=== PATIENT | male | born 1925 | race Caucasian/White ===

== ENCOUNTER 2017-02-10 22:39 | Inpatient (IN) | payer OTHER, MEDICARE ==
[~2017-02-10] VITALS: Ht 175.3 cm; Wt 78.9 kg
[~2017-02-10 22:39] MED LIST: ASPIRIN EC81 M1 PO; CALCIUM500 M1 PO; CELECOXIB200 M1 PO; CIPRO250 M1 PO; CIPRO500 M1 PO; CO Q-10100 MG PO; CRESTOR10 M1 PO; DULOXETINE HCL30 MG PO; KEFLEX500 M1 PO; LUTEIN40 MG PO; OMEGA-31000 M1 PO; OXYCODONE HCL5 M1 PO; POLYETHYLENE G255 GM PO; PROBIOTIC1 EACH PO; PROTONIX40 M3 PO; PYRIDIUM200 M1 PO; TAMSULOSIN HCL0.4 M1 PO; VITAMIN B-121000 MC3 PO; VITAMIN D31000 UNI2 PO
--- NOTE | 2017-02-10 22:40 | NUR ---
PRASANTH FROM HOME (LIVES WITH ) FOR CHRONIC BACK PAIN. PT TOOK MEDS AT HOME WITH NO IMPROVEMENT. UPON EMS ARRIVAL, EMS NOTED THAT PT ENDED UP TAKING 5-6 PILLS OF FLOMAX INSTEAD OF OXYCODONE. OFFERS NO OTHER COMPLAINTS ON ARRIVAL. TEMP 100.7
--- NOTE | 2017-02-10 22:51 | ED NECK/BACK PAIN COMPLAINT ---
History of Present Illness General Chief Complaint: Low Back Pain/Injury Stated Complaint: BIBA FOR BACK PAIN Source: patient Exam Limitations: no limitations Vital Signs & Intake/Output Vital Signs & Intake/Output Vital Signs Date Time Temp Pulse Resp B/P B/P Pulse O2 O2 Flow FiO2 Mean Ox Delivery Rate 02/11 0045 78 16 130/72 95 Nasal 2.0L Cannula 02/10 2258 100.8 20 92 Room Air 02/10 2245 100.7 77 16 142/78 97 Nasal 6.0L Cannula ED Intake and Output 02/11 0000 02/10 1200 Intake Total Output Total Balance Patient 180 lb Weight Weight Estimated Measurement Method Allergies Coded Allergies: NO KNOWN ALLERGIES (08/07/11) Reconcile Medications Aspirin (Ecotrin*) 81 MG TABLET.DR 1 TAB PO DAILY HEART/BLOOD (Reported) Calcium Carbonate (Calcium) 500 MG TABLET 1,500 MG PO DAILY SUPPLEMENT ( Reported) Celecoxib 200 MG CAPSULE 1 CAP PO DAILY ARTHRITIS (Reported) Cholecalciferol (Vitamin D3) 1,000 UNIT TABLET 1 TAB PO DAILY SUPPLEMENT ( Reported) Ciprofloxacin HCl (Cipro) 500 MG TABLET 1 TAB PO BID UTI X 10 DAYS Cyanocobalamin (Vitamin B-12) 1,000 MCG TABLET 1 TAB PO DAILY SUPPLEMENT ( Reported) Duloxetine HCl 30 MG CAPSULE.DR 1 CAP PO DAILY MENTAL HEALTH (Reported) Lactobacillus Acidophilus (Probiotic) 1 EACH CAPSULE 1 CAP PO DAILY SUPPLEMENT (Reported) Lutein (Unknown Strength) CAPSULE (Unknown Dose) PO DAILY SUPPLEMENT ( Reported) [place]-3 Fatty Acids ([place]-3) 1,000 MG CAPSULE 2 CAP PO DAILY SUPPLEMENT ( Reported) Oxycodone HCl 5 MG TABLET 1 TAB PO 4XDAILY PRN PAIN (Reported) Pantoprazole Sodium (Protonix) 40 MG TABLET.DR 1 TAB PO DAILY GI (Reported) Polyethylene Glycol 3350 255 GM POWDER 17 GM PO Q3D GI (Reported) Rosuvastatin Calcium (Crestor) 10 MG TABLET 1 TAB PO 2XW CHOLESTEROL ( Reported) Tamsulosin HCl 0.4 MG CAP.ER.24H 1 CAP PO DAILY PROSTATE (Reported) Ubidecarenone (Co Q-10) 100 MG CAPSULE 1 CAP PO DAILY SUPPLEMENT (Reported) Triage Note: BIBA FROM HOME (LIVES WITH ) FOR CHRONIC BACK PAIN. PT TOOK MEDS AT HOME WITH NO IMPROVEMENT. UPON EMS ARRIVAL, EMS NOTED THAT PT ENDED UP TAKING 5-6 PILLS OF FLOMAX INSTEAD OF OXYCODONE. OFFERS NO OTHER COMPLAINTS ON ARRIVAL. TEMP 100.7 Triage Nurses Notes Reviewed? yes HPI: Mr. Gr is a 89 yo m w/ PMH of prostate ca, chronic back pain, and UTIs presenting to ED for back pain. Patient states that over the past 48 hours he's had significant only worsened low back pain. Pain is over the lumbar area centrally located and slightly towards the right hip. Patient also endorses subjective fever and chills. He was febrile here in the emergency department to 100.7. Patient was also noted to be hypoxic to 92%. Pt denies cough, chest pain, abd pain, N/V/D. + dysuria and increased urinary frequency. Patient thought he was taking his oxycodone for the pain, but found out he was actually taking his Flomax accidentally. He endorses multiple UTIs in the past. (RICKY TOVAR MD) Past History Travel History Traveled to [place] past 21 day No Medical History Any Pertinent Medical History? see below for history Neurological: NONE EENT: NONE Cardiovascular: NONE Respiratory: NONE Gastrointestinal: NONE Renal: PROSTATE SURGERY Musculoskeletal: chronic back pain Psychiatric: NONE Endocrine: NONE Blood Disorders: NONE Cancer(s): prostate cancer Surgical History Surgical History: non-contributory Psychosocial History Who do you live with Spouse What is your primary language Khmer Family History Family History, If Any: Relation not specified for: No family history of disorders Hx Contributory? No (RICKY TOVAR MD) Review of Systems Review of Systems Constitutional: Reports: chills, fever, weakness. Eyes: Reports: no symptoms. Ears, Nose, Throat, Mouth: Reports: no symptoms. Respiratory: Reports: no symptoms. Cardiovascular: Reports: no symptoms. Gastrointestinal/Abdominal: Reports: no symptoms. Musculoskeletal: Reports: no symptoms. Skin: Reports: no symptoms. Neurological/Psychological: Reports: no symptoms. All Other Systems: Reviewed and Negative (RICKY TOVAR MD) Physical Exam Physical Exam General Appearance: well developed/nourished, no apparent distress, alert, awake , comfortable Head: atraumatic, normal appearance Eyes: Bilateral: normal appearance, PERRL, EOMI, normal inspection. Ears, Nose, Throat, Mouth: hearing grossly normal Neck: normal inspection, supple, full range of motion Respiratory: normal breath sounds, chest non-tender, no respiratory distress Cardiovascular: regular rate/rhythm Gastrointestinal: normal bowel sounds, soft, non-tender Back: normal inspection Extremities: non-tender, normal range of motion Neurologic/Psych: no motor/sensory deficits, awake, alert, oriented x 3, normal gait, normal mood/affect Skin: intact, normal color, warm/dry (LA ESTEVEZ,RICKY) Progress Differential Diagnosis: cauda equina syn, herniated disc, pyelo/UTI, T/L spine injury, pneumonia, spinal metastasis Plan of Care: Orders Procedure Date/time Status LACTIC ACID 02/11 203 Active CULTURE,URINE 02/10 2303 Active BLOOD CULTURE 02/10 2303 Active URINALYSIS 02/10 2303 Complete LACTIC ACID 02/10 2303 Complete COMPREHENSIVE METABOLIC PANEL 02/10 2303 Complete CBC WITHOUT DIFFERENTIAL 02/10 2303 Complete Laboratory Tests 02/11/17 012: Urinalysis LIGHT H, Urine Color YEL, Urine Clarity HAZY H, Urine pH 6.5, Ur Specific [place] 1.015, Urine Protein 100 H, Urine Ketones NEG, Urine Nitrite NEG, Urine Bilirubin NEG, Urine Urobilinogen 0.2, Ur Leukocyte Esterase LARGE H , Ur Microscopic SEDIMENT EXAMINED, Urine RBC 3-5, Urine WBC 50-75 H, Ur Epithelial Cells FEW, Urine Bacteria MANY H, Urine Hemoglobin LARGE H, Urine Glucose NEG 02/10/179: Anion Gap 10, Estimated GFR 44 L, BUN/Creatinine Ratio 15.3, Glucose 116 H, Lactic Acid 0.9, Calcium 8.7, Total Bilirubin 1.0, AST 18, ALT 33, Alkaline Phosphatase 69, Total Protein 6.1 L, Albumin 3.4 L, Globulin 2.7, Albumin/ Globulin Ratio 1.3, CBC w Diff NO MAN DIFF REQ, RBC 3.91 L, MCV 91.7, MCH 30.5, RDW 14.0, MPV 10.6 H, Gran % 82.4 H, Lymphocytes % 3.8 L, Monocytes % 12.3 H , Eosinophils % 0, Basophils % 1.5, Absolute Granulocytes 10.0 H, Absolute Lymphocytes 0.5 L, Absolute Monocytes 1.5 H, Absolute Eosinophils 0, Absolute Basophils 0.2, PUBS MCHC 33.2 Microbiology 02/11 0124 URINE ROUT: Urine Culture - RECD 02/11 0000 BLOOD: Blood Culture - RECD 02/10 2309 BLOOD: Blood Culture - RECD 89-year-old male with fever of 100.7. Patient has complaints of back pain with history of prostate cancer. Patient also has history of multiple UTIs. No CVA tenderness bilaterally. Possible UTI today, but unlikely pyelonephritis without CVA tenderness. Patient also does not have any significant respiratory diseases to account for his new hypoxia. He is not on oxygen at baseline. CXR ordered to assess for pneumonia as underlying cause of hypoxia and fever. Given the patient's history of prostate cancer, will obtain a lumbar x-ray to assess for possible pathologic fracture. Patient is moving bilateral lower extremities and denies any urinary hesitancy so unlikely cord compression. Patient ordered for Zofran, morphine and 1 L of fluids for hydration. (RICKY TOVAR MD) Hand-Off Endorsed To: JD VALLECILLO MD Endorsed Time: 51 Pending: other (urine, lactic acid) (RICKY TOVAR MD) Departure Departure Time of Disposition: 52 Disposition: STILL A PATIENT Condition: Stable Referrals: BRUCE HELTON MD (PCP/Family) Departure Forms: Customer Survey General Discharge Information (RICKY TOVAR MD) Departure Clinical Impression Primary Impression: Fever Qualifiers: Fever type: unspecified Qualified Code: R50.9 - Fever, unspecified Secondary Impressions: ARF (acute renal failure) Qualifiers: Acute renal failure type: unspecified Qualified Code: N17.9 - Acute kidney failure, unspecified Back pain Qualifiers: Back pain location: low back pain Chronicity: unspecified Back pain laterality: midline Sciatica presence: without sciatica Qualified Code: M54.5 - Low back pain Urinary tract infection Qualifiers: Urinary tract infection type: acute cystitis Hematuria presence: without hematuria Qualified Code: N30.00 - Acute cystitis without hematuria Admission Note Spoke With: SASKIA MENDIETA MD Documentation of Exam: Documentation of any treatments & extenuating circumstances including Concerns Regarding Discharge (functional status, medication knowledge or non-compliance, living conditions, etc.) that warrant an admission rather than observation: [IV ABX, IV FLUIDS, HX OF PSEUDOMONAS IN URINE, ID CONSULT, RENAL CONSULT] PA/WELDING MACHINE FEEDER Co-Sign Statement Statement: ED Attending supervision documentation- [X] I saw and evaluated the patient. I have also reviewed all the pertinent lab results and diagnostic results. I agree with the findings and the plan of care as documented in the PA's/WELDING MACHINE FEEDER's documentation. [X] I have reviewed the ED Record and agree with the PA's/WELDING MACHINE FEEDER's documentation. [] Additions or exceptions (if any) to the PAs/WELDING MACHINE FEEDER's note and plan are summarized below: [] (RUTH ANN ESTEVEZ,JD Alvarado) [X] I saw and evaluated the patient. I have also reviewed all the pertinent lab results and diagnostic results. I agree with the findings and the plan of care as documented in the PA's/WELDING MACHINE FEEDER's documentation. [X] I have reviewed the ED Record and agree with the PA's/WELDING MACHINE FEEDER's documentation. [] Additions or exceptions (if any) to the PAs/WELDING MACHINE FEEDER's note and plan are summarized below: [] (RUTH ANN ESTEVEZ,JD Alvarado)
--- NOTE | 2017-02-10 23:00 | NUR ---
DR LUIS AT BEDSIDE FOR EVAL
[2017-02-10 23:22] LABS: ABSOLUTE BASOPHIL COUNT 0.2 /CUMM (0.0-0.2); ABSOLUTE EOSINOPHIL COUNT 0 /CUMM (0.0-0.7); ABSOLUTE LYMPH COUNT 0.5 /CUMM (1.2-3.4); ABSOLUTE MONOCYTE COUNT 1.5 /CUMM (0.10-0.60); BASOPHIL % 1.5 % (0.0-2.0); EOSINOPHIL % 0 % (0-5); GRANULOCYTE % 82.4 % (42.2-75.2); HEMATOCRIT 35.8 % (42-52); MEAN CORPUSCULAR HGB 30.5 PG (27.0-31.0); MEAN CORPUSCULAR HGB CONC 33.2 G/DL (33.0-37.0); MEAN CORPUSCULAR VOLUME 91.7 FL (80.0-94.0); MEAN PLATELET VOLUME 10.6 FL (7.4-10.4); RED BLOOD CELL CT 3.91 /CUMM (4.70-6.10); WHITE BLOOD CELL COUNT 12.1 /CUMM (4.8-10.8)
[2017-02-10 23:39] LABS: PLATELET COUNT 98 /CUMM (130-400)
--- NOTE | 2017-02-10 23:53 | RADIOLOGY REPORT ---
EXAMINATION: XR CHEST CLINICAL INFORMATION: Hypoxia and fever COMPARISON: 04/23/2013 TECHNIQUE: 2 views of the chest were obtained. FINDINGS: The lungs are well expanded. There is no focal consolidation, edema, or effusion. No pneumothorax. The cardiomediastinal silhouette is unchanged, with a calcified aorta. No acute osseous abnormality. IMPRESSION: No acute pulmonary findings.
--- NOTE | 2017-02-10 23:58 | RADIOLOGY REPORT ---
EXAMINATION: XR LUMBOSACRAL SPINE CLINICAL INFORMATION: Prostate cancer, worse back pain. COMPARISON: Pelvic CT 02/14/2016. Bone scan from 02/14/2016. Abdomen/pelvis CT 01/25/2015. TECHNIQUE: AP and lateral views of the lumbosacral spine were obtained. FINDINGS: Posterior fusion hardware is in place from L4 through S1. Left L5 particular screw. No right-sided screw. This is unchanged. There is a lucent appearance of the L5 vertebral body which may be similar to the prior auto fleet maintenance manager image from the 01/25/2015 CT. This vertebral body is not well evaluated. Chronic vertebral body height loss of L3. The remaining vertebral body heights are maintained. Multilevel degenerative changes throughout the spine. Prominent disc space narrowing throughout with vacuum disc phenomenon. Large endplate osteophytes. The sacroiliac joints are intact. Partial visualization of right hip arthroplasty hardware. IMPRESSION: Moderate degenerative changes throughout the lumbar spine. Lucent appearance of the L5 vertebral body is likely similar to the previous Air Filler imaging from prior CTs. This limits evaluation of L5. Otherwise no evidence for fracture. No new sclerotic lesion.
--- NOTE | 2017-02-11 00:06 | NUR ---
2ND SET OF BLOOD CULTURES DRAWN AND SENT TO LAB.
--- NOTE | 2017-02-11 00:46 | NUR ---
HEPLOCK INSERTED. CO LOW BACK PAIN 02/15 MORPHINE AND ZOFRAN GIVEN IV.
--- NOTE | 2017-02-11 01:27 | NUR ---
URINE SAMPLE SENT TO LAB
--- NOTE | 2017-02-11 03:30 | NUR ---
RE EVAL BY DR VALLECILLO. PT TO BE ADMITTED. NS UP CLEMENTINA PILLAI.
--- NOTE | 2017-02-11 03:47 | History & Physical ---
MARTY ESTEVEZ,YUMIKO 02/11/17 0347: General Information and HPI Allergies/Medications Allergies: Coded Allergies: NO KNOWN ALLERGIES (08/07/11) Home Med list Aspirin (Ecotrin*) 81 MG TABLET.DR 1 TAB PO DAILY HEART/BLOOD (Reported) Calcium Carbonate (Calcium) 500 MG TABLET 1,500 MG PO DAILY SUPPLEMENT ( Reported) Celecoxib 200 MG CAPSULE 1 CAP PO DAILY ARTHRITIS (Reported) Cholecalciferol (Vitamin D3) 1,000 UNIT TABLET 1 TAB PO DAILY SUPPLEMENT ( Reported) Ciprofloxacin HCl (Cipro) 500 MG TABLET 1 TAB PO BID UTI X 10 DAYS Cyanocobalamin (Vitamin B-12) 1,000 MCG TABLET 1 TAB PO DAILY SUPPLEMENT ( Reported) Duloxetine HCl 30 MG CAPSULE.DR 1 CAP PO DAILY MENTAL HEALTH (Reported) Lactobacillus Acidophilus (Probiotic) 1 EACH CAPSULE 1 CAP PO DAILY SUPPLEMENT (Reported) Lutein (Unknown Strength) CAPSULE (Unknown Dose) PO DAILY SUPPLEMENT ( Reported) [place]-3 Fatty Acids ([place]-3) 1,000 MG CAPSULE 2 CAP PO DAILY SUPPLEMENT ( Reported) Oxycodone HCl 5 MG TABLET 1 TAB PO 4XDAILY PRN PAIN (Reported) Pantoprazole Sodium (Protonix) 40 MG TABLET.DR 1 TAB PO DAILY GI (Reported) Polyethylene Glycol 3350 255 GM POWDER 17 GM PO Q3D GI (Reported) Rosuvastatin Calcium (Crestor) 10 MG TABLET 1 TAB PO 2XW CHOLESTEROL ( Reported) Tamsulosin HCl 0.4 MG CAP.ER.24H 1 CAP PO DAILY PROSTATE (Reported) Ubidecarenone (Co Q-10) 100 MG CAPSULE 1 CAP PO DAILY SUPPLEMENT (Reported) Past History Travel History Traveled to [place] past 21 day No Medical History Neurological: NONE EENT: NONE Cardiovascular: hyperlipidemia Respiratory: NONE Gastrointestinal: NONE Hepatic: NONE Renal: PROSTATE SURGERY Musculoskeletal: chronic back pain Psychiatric: NONE Endocrine: NONE Blood Disorders: NONE Cancer(s): prostate cancer Surgical History Surgical History: non-contributory Past Family/Social History Family History Relations & Conditions if any Relation not specified for: No family history of disorders Core Measures/Miscellaneous Severe Sepsis Severe Sepsis Present: No Septic Shock Septic Shock Present: No GEORGIE OVIEDO 02/11/17 0359: Resident Review Statement Resident Statement: examined this patient, discussed with architecture intern, agreed with architecture intern, discussed with family, reviewed EMR data (avail), discussed with nursing , discussed with case mgmt, reviewed images, amended to note
--- NOTE | 2017-02-11 04:25 | NUR ---
HOUSE STAFF HERE TO [facility]
--- NOTE | 2017-02-11 04:49 | History & Physical ---
MELLO MARIN MD,[facility] 02/11/17 0448: General Information and HPI MD Statement: I have seen and personally examined LISA MENA and documented this H&P. The patient is a 89 year old M who presented with a patient stated chief complaint of [burning and pain while passing urine]. Source of Information: patient, old records Exam Limitations: patient's age, clinical condition, poor historian History of Present Illness: 89 years old male with past medical history significant for prostate cancer status post radiation and ? hormonal therapy, dyslipidemia, arthritis in 1999, bilateral knee replacement, history of right hip replacement surgery 2000, L5-S1 fusion and laminectomy, rotator cuff injury of right shoulder, neuropathy, macular degeneration, history of vertigo in the past, left eye cataract surgery, recent admission at the [facility] for urinary tract infection came to emergency department for inability to urinate, pain with passing urine, and burning while passing urine. Patient reported that his noticed some subjective fevers and he had chills and therefore decided to come to emergency department. Patient also complained of back pain and right hip pain that has been going on for the last few days. According to the patient he did not report any falls or trauma. Patient talked that he was taking oxycodone to manage his pain but actually he was taking Flomax instead of oxycodone. This information was conveyed to him by the EMT staff who came to bring him to [facility]. Review of systems positive for headaches, chronic back pain and bilateral lower extremity edema. Review of system was negative for any acute severe changes, chest pain, shortness of breath, nausea, vomiting, recent diarrhea, history of febrile contacts or rash. Allergies/Medications Allergies: Coded Allergies: NO KNOWN ALLERGIES (08/07/11) Home Med list Aspirin (Ecotrin*) 81 MG TABLET.DR 1 TAB PO DAILY HEART/BLOOD (Reported) Calcium Carbonate (Calcium) 500 MG TABLET 1,500 MG PO DAILY SUPPLEMENT ( Reported) Celecoxib 200 MG CAPSULE 1 CAP PO DAILY ARTHRITIS (Reported) Cholecalciferol (Vitamin D3) 1,000 UNIT TABLET 1 TAB PO DAILY SUPPLEMENT ( Reported) Ciprofloxacin HCl (Cipro) 500 MG TABLET 1 TAB PO BID UTI X 10 DAYS Cyanocobalamin (Vitamin B-12) 1,000 MCG TABLET 1 TAB PO DAILY SUPPLEMENT ( Reported) Duloxetine HCl 30 MG CAPSULE.DR 1 CAP PO DAILY MENTAL HEALTH (Reported) Lactobacillus Acidophilus (Probiotic) 1 EACH CAPSULE 1 CAP PO DAILY SUPPLEMENT (Reported) Lutein (Unknown Strength) CAPSULE (Unknown Dose) PO DAILY SUPPLEMENT ( Reported) [place]-3 Fatty Acids ([place]-3) 1,000 MG CAPSULE 2 CAP PO DAILY SUPPLEMENT ( Reported) Oxycodone HCl 5 MG TABLET 1 TAB PO 4XDAILY PRN PAIN (Reported) Pantoprazole Sodium (Protonix) 40 MG TABLET.DR 1 TAB PO DAILY GI (Reported) Polyethylene Glycol 3350 255 GM POWDER 17 GM PO Q3D GI (Reported) Rosuvastatin Calcium (Crestor) 10 MG TABLET 1 TAB PO 2XW CHOLESTEROL ( Reported) Tamsulosin HCl 0.4 MG CAP.ER.24H 1 CAP PO DAILY PROSTATE (Reported) Ubidecarenone (Co Q-10) 100 MG CAPSULE 1 CAP PO DAILY SUPPLEMENT (Reported) Compliance With Home Meds: UNKNOWN Past History Travel History Traveled to [place] past 21 day No Medical History Neurological: NONE EENT: NONE Cardiovascular: hyperlipidemia Respiratory: NONE Gastrointestinal: NONE Hepatic: NONE Renal: PROSTATE SURGERY Musculoskeletal: chronic back pain Psychiatric: NONE Endocrine: NONE Blood Disorders: NONE Cancer(s): prostate cancer Surgical History Surgical History: non-contributory ECHO Results (as available) Date of last Echo 08/08/11 EF% 60 Past Family/Social History Family History Relations & Conditions if any Relation not specified for: No family history of disorders Psychosocial History Where do you live? Home Who Do You Live With? spouse Primary Language: [place] Functional Ability ADLs Independent: dressing, eating, toileting, bathing. Ambulation: walker Review of Systems Review of Systems Constitutional: Reports: chills, fever. EENTM: Denies: visual changes. Cardiovascular: Denies: chest pain, palpitations. Respiratory: Denies: cough, short of breath. GI: Denies: abdominal pain, nausea, vomiting. Genitourinary: Reports: dysuria, pain. Musculoskeletal: Reports: back pain. All Other Systems: Reviewed and Negative Exam & Diagnostic Data Last 24 Hrs of Vital Signs/I&O Vital Signs Date Time Temp Pulse Resp B/P B/P Pulse O2 O2 Flow FiO2 Mean Ox Delivery Rate 02/11 0045 78 16 130/72 95 Nasal 2.0L Cannula 02/10 2258 100.8 20 92 Room Air 02/10 2245 100.7 77 16 142/78 97 Nasal 6.0L Cannula Intake & Output 02/11 0800 02/11 0000 02/10 1600 Intake Total Output Total Balance Patient 180 lb Weight Weight Estimated Measurement Method Physical Exam General Appearance Alert, Oriented X3, Mild Distress Skin No Rashes, No Breakdown HEENT Atraumatic, dry mucous membranes Neck No JVD Cardiovascular Regular Rate, Normal S1, Normal S2 Lungs Clear to Auscultation, Normal Air Movement Abdomen Normal Bowel Sounds, mild lower central abdominal tenderness on palpation Neurological Normal Gait, Normal Speech, Normal Tone, Sensation Intact Extremities No Clubbing, Normal Pulses, 1-2+ bilateral lower extremity edema Vascular Normal Pulses Last 24 Hrs of Labs/Bashir: Laboratory Tests 02/11/17123: Urinalysis LIGHT H, Urine Color YEL, Urine Clarity HAZY H, Urine pH 6.5, Ur Specific [place] 1.015, Urine Protein 100 H, Urine Ketones NEG, Urine Nitrite NEG, Urine Bilirubin NEG, Urine Urobilinogen 0.2, Ur Leukocyte Esterase LARGE H , Ur Microscopic SEDIMENT EXAMINED, Urine RBC 3-5, Urine WBC 50-75 H, Ur Epithelial Cells FEW, Urine Bacteria MANY H, Urine Hemoglobin LARGE H, Urine Glucose NEG 02/10/172308: Anion Gap 10, Estimated GFR 44 L, BUN/Creatinine Ratio 15.3, Glucose 116 H, Lactic Acid 0.9, Calcium 8.7, Total Bilirubin 1.0, AST 18, ALT 33, Alkaline Phosphatase 69, Total Protein 6.1 L, Albumin 3.4 L, Globulin 2.7, Albumin/ Globulin Ratio 1.3, CBC w Diff NO MAN DIFF REQ, RBC 3.91 L, MCV 91.7, MCH 30.5, RDW 14.0, MPV 10.6 H, Gran % 82.4 H, Lymphocytes % 3.8 L, Monocytes % 12.3 H , Eosinophils % 0, Basophils % 1.5, Absolute Granulocytes 10.0 H, Absolute Lymphocytes 0.5 L, Absolute Monocytes 1.5 H, Absolute Eosinophils 0, Absolute Basophils 0.2, PUBS MCHC 33.2 Microbiology 02/11 0124 URINE ROUT: Urine Culture - RECD 02/11 0000 BLOOD: Blood Culture - RECD 02/10 2309 BLOOD: Blood Culture - RECD Diagnostic Data CXR Results No acute pulmonary findings. Other Results Moderate degenerative changes throughout the lumbar spine. Lucent appearance of the L5 vertebral body is likely similar to the previous Staff Mechanical Engineer imaging from prior CTs. This limits evaluation of L5. Otherwise no evidence for fracture. No new sclerotic lesion. Assessment/Plan Assessment: 89 years old male with past medical history significant for prostate cancer status post radiation and ? hormonal therapy, dyslipidemia, arthritis in 1999, bilateral knee replacement, history of right hip replacement surgery 2000, L5-S1 fusion and laminectomy, rotator cuff injury of right shoulder, neuropathy, macular degeneration, history of vertigo in the past, left eye cataract surgery, recent admission at the [facility] for urinary tract infection came to emergency department for inability to urinate, pain with passing urine, and burning while passing urine, subjective fever, chills and back pain. Patient was admitted on general medicine floor for the management of following problems Sepsis secondary to urinary tract infection Patient meets the criteria for sepsis given leukocytosis of 12.1 and high-grade fever of 101.4, and does not have any tachypnea or tachycardia. Most likely source of sepsis in this patient is secondary to urinary tract infection with history of multiple UTIs in the past and history of benign prostatic hyperplasia in the setting of prostate CA further complicates this. We wanted to rule out urinary tract obstruction leading to acute renal failure and wanted to place Diehl catheter per patient denied this. We will obtain an urgent renal ultrasound to rule out hydronephrosis. Also obtain urology consult in a.m. - Admit Patient to General Medicine Floor - Vitals Qshift - Patient received 1 dose of IV ceftazidime in ED - Continue with IV ceftazidime - Send Urine Culture - Check blood cultures to rule out bacteremia - Check Survillence Cultures - Repeat CBC in AM - Tyelenol PRN if patient develops fever - Incase of worsening Fever consider CT Abd/Pelvis - Fall Precautions - IV fluids normal saline at the rate of 125 mL per hour - Avoid nephrotoxins - Repeat BEP in a.m. - Urology consult Acute kidney injury in the setting of BPH Most likely cause of acute kidney injury is obstruction versus decreased by mouth intake. Patient's creatinine was more than 0.3 mg/dL from baseline (1.0), and qualifies for acute kidney injury. Patient denied Diehl's catheter. Check Input output Avoid nephrotoxins IV fluids normal saline at the rate of 125 mL per hour Repeat BEP in a.m. Imaging to rule out obstruction Hypoxemic Respiratory Failure Patient does not require oxygen at baseline Well's Criteria 2.5 (H/O cancer and immbolization) Low threshold for PE but possibility of PE should be kept in mind if persistent hypoxemia History of prostate CA Patient has past medical history significant for prostate CA. According to the patient he has been treated with radiotherapy and questionable hormonal therapy.Patient also has h/o chronic back pain. kindly confirm by obtaining medical records. ? Thrombocytopenia Recheck platelets Check peripheral smear Patient is Full Code Patient is on pain management pathway Patient is on ALPS for DVT prophylaxis Patient is on regular diet As Ranked By This Provider Problem List: 1. BPH 2. Urinary tract infection Qualifiers Urinary tract infection type: acute cystitis Hematuria presence: without hematuria Qualified Code: N30.00 - Acute cystitis without hematuria 3. Fever Qualifiers Fever type: unspecified Qualified Code: R50.9 - Fever, unspecified 4. ARF (acute renal failure) Qualifiers Acute renal failure type: unspecified Qualified Code: N17.9 - Acute kidney failure, unspecified Core Measures/Miscellaneous Acute Coronary Syndrome ACS Diagnosis: No Cerebrovascular Accident CVA/TIA Diagnosis: No Congestive Heart Failure CHF Diagnosis: No Venous Thromboembolism VTE Risk Factors: Acute medical illness, Age > 40, Cancer/chemo/oth therapy No Mech VTE prophylaxis d/t: No contraindications No VTE Pharm Prophylaxis d/t: No contraindications VTE Diagnosis: No VTE Type: NONE VTE Confirmed by (Test): NONE Severe Sepsis Severe Sepsis Present: No Septic Shock Septic Shock Present: No Miscellaneous Documentation Attending Case Discussed With: [facility]ED[facility] Primary Care Physician: BRUCE HELTON MD Patient sees these Specialists Oncologist Urologist Level of Patient Care: General Medicine Consults Needed: Consulting Specialty: Urology [facility]11[facility]17 0617: Attending MD Review Statement Attending Statement Attending MD Statement: examined this patient, discuss w/resident/PA/GLASS LAMINATING OPERATOR, agreed w/resident/PA/GLASS LAMINATING OPERATOR Attending Assessment/Plan: 89 yo M with h/o prostate adenocarcinoma s/p radiation therapy (2016), was on Casodex but discontinued due to side effects, recurrent UTIs with multiple ER visits (2016) and recent [place] admission for the same, is here today for evaluation of back pain. In an attempt to prevent his neighbour from stealing his pain meds, patient had placed his Oxycodone in a different bottle, and reportedly has been taking multiple doses of flomax instead of oxycodone (as told to him by EMS). No recent trauma. He has chronic back pain and is status post laminectomy. He reports difficulty urinating, dysuria and increased frequency. Poor PO intake. History is very limited as patient is unable to provide much details. Vitals: Tmax 101.4, BP 130/72, sats 95% on 2L. Exam: AAO, dry mucous membranes, Chest b/l clear, Heart S1S2 regular, Abd soft, suprapubic tenderness, no CVA tenderness. LE: trace pedal edema. Labs: WBC 12.1, Plt 98, BUN 23, creat 1.5 ( baseline 0.8), glucose 116, lactic acid 0.9. UA proteinuria, WBC 50-75, many bacteria, large Hb, large LE, nitrite neg. CXR: neg, Lumbar xray: moderate degenerative changes, no fracture. Bone scan (February 2016): no evidence of metastatic disease. Echo (2010): EF 55-60%, stage 1 diastolic dysfunction. 1. Sepsis 2/2 UTI- acute cysitis with CHRISTINE likely prerenal. GM admit, panculture, IV ceftaz (previous culture has grown Pseudomonas). IV fluids. Continue flomax. Renal ultrasound in AM, patient refuses Diehl placement at this point. Please check bladder scan and residual post void. Obtain Urology consult. Please obtain records from [facility] about recent hospitalization. Please obtain collateral information from patient's daughter. 2. Acute hypoxic respiratory failure, no evidence of pneumonia or CHF. Will given [facility] nebs, incentive spirometry. If he continues to require O2 supplementation, I would consider PE in the differential given his recent cancer history. 3. Thrombocytopenia ?2/2 sepsis. He has had low platelets in the past. Please check peripheral smear and PT/INR. 4. Chronic back pain. No urinary or fecal incontinence. Last bone scan (February 2016) was negative for metastasis. Continue pain management with oxycodone. DVT ppx Alps (low platelets). Full code.
--- NOTE | 2017-02-11 05:07 | NUR ---
T = 101.4T TYLENOL 2 TAB PO GIVEN.
--- NOTE | 2017-02-11 06:06 | Admission Certification ---
Admission Certification Certification Statement - As attending physician, I certify that at the time of - admission, based on clinical presentation, severity of - symptoms, need for further diagnostic testing and - therapeutic interventions, and risk of adverse outcomes - without in-hospital treatment, in my clinical assessment, - this patient requires an acute hospital stay for a minimum - of two nights or longer. I have also considered psychsocial - factors such as support system, advanced age, financial - issues, cognitive issues, and failed out-patient treatments, - past re-admission history, safety of patient, and lack of - compliance as applicable. Specific rationale supporting this admission is: Sepsis secondary to UTI/ acute cystitis, CHRISTINE.
[2017-02-11 06:21] LABS: ABSOLUTE BASOPHIL COUNT 0 /CUMM (0.0-0.2); ABSOLUTE EOSINOPHIL COUNT 0 /CUMM (0.0-0.7); ABSOLUTE GRANULOCYTE CT 8.9 /CUMM (1.4-6.5); ABSOLUTE LYMPH COUNT 0.4 /CUMM (1.2-3.4); ABSOLUTE MONOCYTE COUNT 1.1 /CUMM (0.10-0.60); BASOPHIL % 0.4 % (0.0-2.0); EOSINOPHIL % 0.1 % (0-5); GRANULOCYTE % 85.5 % (42.2-75.2); MEAN CORPUSCULAR HGB 30.3 PG (27.0-31.0); MEAN CORPUSCULAR HGB CONC 33.1 G/DL (33.0-37.0); MEAN CORPUSCULAR VOLUME 91.7 FL (80.0-94.0); MEAN PLATELET VOLUME 9.5 FL (7.4-10.4); RBC DISTRIBUTION WIDTH 13.7 % (11.5-14.5); WHITE BLOOD CELL COUNT 10.4 /CUMM (4.8-10.8)
[2017-02-11 06:25] LABS: PLATELET COUNT 85 /CUMM (130-400)
--- NOTE | 2017-02-11 07:42 | NUR ---
LABS DRAWN AND SENT BY THIS [facility] BLUE, SST, LAV
--- NOTE | 2017-02-11 07:47 | NUR ---
DAUGHTER HASMUKH, . CAN BE CALLED WITH QUESTIONS.
[2017-02-11 08:00] VITALS: BP 116/58
[2017-02-11 08:12] LABS: PT 15.2 SEC (9.4-12.5)
--- NOTE | 2017-02-11 08:31 | NUR ---
HOUSESTAFF AT BEDSIDE.
--- NOTE | 2017-02-11 08:35 | Cons- Urology ---
General Information and HPI Consulting Request Date of Consult: 02/11/17 Requested By: GAYATRI ESTEVEZ,SASKIA Reason for Consult: ACUTE KIDNEY INJURY Source of Information: old records Allergies/Medications Allergies: Coded Allergies: NO KNOWN ALLERGIES (08/07/11) Home Med List: Aspirin (Ecotrin*) 81 MG TABLET.DR 1 TAB PO DAILY HEART/BLOOD (Reported) Calcium Carbonate (Calcium) 500 MG TABLET 1,500 MG PO DAILY SUPPLEMENT ( Reported) Celecoxib 200 MG CAPSULE 1 CAP PO DAILY ARTHRITIS (Reported) Cholecalciferol (Vitamin D3) 1,000 UNIT TABLET 1 TAB PO DAILY SUPPLEMENT ( Reported) Ciprofloxacin HCl (Cipro) 500 MG TABLET 1 TAB PO BID UTI X 10 DAYS Cyanocobalamin (Vitamin B-12) 1,000 MCG TABLET 1 TAB PO DAILY SUPPLEMENT ( Reported) Duloxetine HCl 30 MG CAPSULE.DR 1 CAP PO DAILY MENTAL HEALTH (Reported) Lactobacillus Acidophilus (Probiotic) 1 EACH CAPSULE 1 CAP PO DAILY SUPPLEMENT (Reported) Lutein (Unknown Strength) CAPSULE (Unknown Dose) PO DAILY SUPPLEMENT ( Reported) [place]-3 Fatty Acids ([place]-3) 1,000 MG CAPSULE 2 CAP PO DAILY SUPPLEMENT ( Reported) Oxycodone HCl 5 MG TABLET 1 TAB PO 4XDAILY PRN PAIN (Reported) Pantoprazole Sodium (Protonix) 40 MG TABLET.DR 1 TAB PO DAILY GI (Reported) Polyethylene Glycol 3350 255 GM POWDER 17 GM PO Q3D GI (Reported) Rosuvastatin Calcium (Crestor) 10 MG TABLET 1 TAB PO 2XW CHOLESTEROL ( Reported) Tamsulosin HCl 0.4 MG CAP.ER.24H 1 CAP PO DAILY PROSTATE (Reported) Ubidecarenone (Co Q-10) 100 MG CAPSULE 1 CAP PO DAILY SUPPLEMENT (Reported) Current Medications: Current Medications Sig/Emily Start time Last Medication Dose Route Stop Time Status Admin Acetaminophen 1,000 MG ONCE ONE 02/11 0515 DC N/A 1 UNIT IV 02/11 05 Acetaminophen 0 .STK-MED ONE 02/11 0509 DC PO Acetaminophen 650 MG Q6P PRN 02/11 0400 AC 02/11 PO 0506 Aspirin Buffered 81 MG DAILY 02/11 1000 AC PO Atorvastatin Calcium 40 MG 1700 02/11 1700 AC PO Ceftazidime 1,000 MG Q12H 02/11 1500 AC IV Ceftazidime 0 .STK-MED ONE 02/11 0336 DC .ROUTE Ceftazidime 1,000 MG ONCE ONE 02/11 0330 DC 02/11 IV 02/11 0331 0333 Heparin Sodium 5,000 UNIT Q8 02/11 06 DC (Porcine) SC Morphine Sulfate 0 .STK-MED ONE 02/11 0033 DC .ROUTE Morphine Sulfate 6 MG ONCE ONE 02/11 0015 DC 02/11 IV 02/11 0016 0035 Ondansetron HCl 0 .STK-MED ONE 02/11 0033 DC .ROUTE Ondansetron HCl 4 MG ONCE ONE 02/11 0015 DC 02/11 IV 02/11 0016 0035 Oxycodone HCl 5 MG Q6P PRN 02/11 0400 AC PO Polyethylene Glycol 17 GM DAILY 02/11 1000 AC PO Senna 187 MG AT BEDTIME 02/11 2200 AC PO Sodium Chloride 1,000 ML Q8H 02/11 0515 AC 02/11 IV 0523 Sodium Chloride 1,000 ML BOLUS ONE 02/11 0045 DC 02/11 IV 02/11 0144 0035 Tamsulosin HCl 0.4 MG DAILY 02/11 1000 AC PO Past History Medical History Neurological: NONE EENT: NONE Cardiovascular: hyperlipidemia Respiratory: NONE Gastrointestinal: NONE Hepatic: NONE Renal: PROSTATE SURGERY Musculoskeletal: chronic back pain Psychiatric: NONE Endocrine: NONE Blood Disorders: NONE Cancer(s): prostate cancer Surgical History Pertinent Surgical History: non-contributory Family History Relations & Conditions If Any: Relation not specified for: No family history of disorders Psychosocial History Where Do You Live? Home Who Do You Live With? spouse Primary Language: Turkish Functional Ability ADLs Independent: dressing, eating, toileting, bathing. Ambulation: walker Employment History Retired? yes Exam & Diagnostic Data Vital Signs and I&O Vital Signs Date Time Temp Pulse Resp B/P B/P Pulse O2 O2 Flow FiO2 Mean Ox Delivery Rate 02/11 0742 98.5 02/11 0730 98.5 72 18 116/58 96 Nasal 2.0L Cannula 02/11 0715 100.0 02/11 0506 101.4 02/11 0045 78 16 130/72 95 Nasal 2.0L Cannula 02/10 2258 100.8 20 92 Room Air 02/10 2245 100.7 77 16 142/78 97 Nasal 6.0L Cannula Intake & Output 02/11 1600 02/11 0800 02/11 0000 02/10 1600 02/10 0800 02/10 0000 Intake Total 1500 Output Total 100 Balance 1400 Intake, IV 1500 Output, Urine 100 Patient 176 lb 180 lb Weight Weight Estimated Measurement Method Last 24 Hours of Labs: Laboratory Tests 02/11 02/11 02/11 0740 0607 0607 Chemistry Sodium (137 - 145 mmol/L) 140 Potassium (3.5 - 5.1 mmol/L) 3.7 Chloride (98 - 107 mmol/L) 105 Carbon Dioxide (22 - 30 mmol/L) 24 Anion Gap (5 - 16) 11 BUN (9 - 20 mg/dL) 22 H Creatinine (0.7 - 1.2 mg/dL) 1.4 H Estimated GFR (>60 ml/min) 48 L BUN/Creatinine Ratio (7 - 25 %) 15.7 Lactic Acid (0.7 - 2.1 mmol/L) 1.0 Coagulation PT (9.4 - 12.5 SEC) 15.2 H INR (0.90 - 1.17) 1.45 H Hematology CBC w Diff MAN DIFF ORDERED WBC (4.8 - 10.8 /CUMM) 10.4 RBC (4.70 - 6.10 /CUMM) 3.70 L Hgb (14.0 - 18.0 G/DL) 11.2 L Hct (42 - 52 %) 34.0 L MCV (80.0 - 94.0 FL) 91.7 MCH (27.0 - 31.0 PG) 30.3 RDW (11.5 - 14.5 %) 13.7 Plt Count (130 - 400 /CUMM) 85 L MPV (7.4 - 10.4 FL) 9.5 Gran % (42.2 - 75.2 %) 85.5 H Lymphocytes % (20.5 - 51.1 %) 3.8 L Monocytes % (1.7 - 9.3 %) 10.2 H Eosinophils % (0 - 5 %) 0.1 Basophils % (0.0 - 2.0 %) 0.4 Absolute Granulocytes (1.4 - 6.5 /CUMM) 8.9 H Segmented Neutrophils (42.2 - 75.2 %) 86 H Band Neutrophils (0.0 - 5.0 %) 2 Absolute Lymphocytes (1.2 - 3.4 /CUMM) 0.4 L Lymphocytes (20.5 - 51.1 %) 4 L Monocytes (1.7 - 9.3 %) 7 Absolute Monocytes (0.10 - 0.60 /CUMM) 1.1 H Eosinophils (0 - 5.0 %) 1 Absolute Eosinophils (0.0 - 0.7 /CUMM) 0 Absolute Basophils (0.0 - 0.2 /CUMM) 0 Platelet Estimate (ADEQUATE) DECREASED Normocytic RBCs VERIFIED Normochromic RBCs VERIFIED PUBS MCHC (33.0 - 37.0 G/DL) 33.1 Other Body Source Fld Total RBCs Counted (%) 100 06 06 0124 2309 Chemistry Sodium (137 - 145 mmol/L) 137 Potassium (3.5 - 5.1 mmol/L) 3.5 Chloride (98 - 107 mmol/L) 102 Carbon Dioxide (22 - 30 mmol/L) 24 Anion Gap (5 - 16) 10 BUN (9 - 20 mg/dL) 23 H Creatinine (0.7 - 1.2 mg/dL) 1.5 H Estimated GFR (>60 ml/min) 44 L BUN/Creatinine Ratio (7 - 25 %) 15.3 Glucose (65 - 99 mg/dL) 116 H Lactic Acid (0.7 - 2.1 mmol/L) 0.9 Calcium (8.4 - 10.2 mg/dL) 8.7 Total Bilirubin (0.2 - 1.3 mg/dL) 1.0 AST (17 - 59 U/L) 18 ALT (21 - 72 U/L) 33 Alkaline Phosphatase (< 127 U/L) 69 Total Protein (6.3 - 8.2 g/dL) 6.1 L Albumin (3.5 - 5.0 g/dL) 3.4 L Globulin (1.9 - 4.2 gm/dL) 2.7 Albumin/Globulin Ratio (1.1 - 2.2 %) 1.3 Hematology CBC w Diff NO MAN DIFF REQ WBC (4.8 - 10.8 /CUMM) 12.1 H RBC (4.70 - 6.10 /CUMM) 3.91 L Hgb (14.0 - 18.0 G/DL) 11.9 L Hct (42 - 52 %) 35.8 L MCV (80.0 - 94.0 FL) 91.7 MCH (27.0 - 31.0 PG) 30.5 RDW (11.5 - 14.5 %) 14.0 Plt Count (130 - 400 /CUMM) 98 L MPV (7.4 - 10.4 FL) 10.6 H Gran % (42.2 - 75.2 %) 82.4 H Lymphocytes % (20.5 - 51.1 %) 3.8 L Monocytes % (1.7 - 9.3 %) 12.3 H Eosinophils % (0 - 5 %) 0 Basophils % (0.0 - 2.0 %) 1.5 Absolute Granulocytes (1.4 - 6.5 /CUMM) 10.0 H Absolute Lymphocytes (1.2 - 3.4 /CUMM) 0.5 L Absolute Monocytes (0.10 - 0.60 /CUMM) 1.5 H Absolute Eosinophils (0.0 - 0.7 /CUMM) 0 Absolute Basophils (0.0 - 0.2 /CUMM) 0.2 PUBS MCHC (33.0 - 37.0 G/DL) 33.2 Urines Urinalysis LIGHT H Urine Color (YEL,AMB,STR) YEL Urine Clarity (CLEAR) HAZY H Urine pH (5.0 - 8.0) 6.5 Ur Specific [place] (1.001 - 1.035) 1.015 Urine Protein (NEG,<30 MG/DL) 100 H Urine Ketones (NEG) NEG Urine Nitrite (NEG) NEG Urine Bilirubin (NEG) NEG Urine Urobilinogen (0.1 - 1.0 EU/dl) 0.2 Ur Leukocyte Esterase (NEG) LARGE H Ur Microscopic SEDIMENT EXAMINED Urine RBC (0 - 5 /HPF) 3-5 Urine WBC (0 - 2 /HPF) 50-75 H Ur Epithelial Cells (NONE,FEW) FEW Urine Bacteria (NEG/NONE) MANY H Urine Hemoglobin (NEG) LARGE H Urine Glucose (N MG/DL) NEG Imaging Results: PATIENT: LISA MENA PRESENT AGE: 89 PATIENT ACCOUNT NO: [id number] : [birth year] LOCATION: [facility] ORDERING PHYSICIAN: BRANNON EATON MD SERVICE DATE: 02/14/16- EXAM TYPE: CAT - CT PELVIS W IV CONTRAST EXAMINATION: CT PELVIS WITH IV CONTRAST CLINICAL INFORMATION: Prostate cancer. COMPARISON: CT abdomen and pelvis 01/25/2015 and 09/04/2013. TECHNIQUE: Helical scanning was performed with submillimeter collimation through the pelvis with 95 mL of Optiray 320 intravenous contrast. Sagittal and coronal multiplanar 2-D reconstructions were obtained. DLP: 976 mGy-cm. FINDINGS: The prostate gland is enlarged, measuring 6.3 cm in transverse diameter. There is some heterogeneous enhancement along the left aspect of the prostate gland, however, evaluation is somewhat limited secondary to streak artifact from right hip arthroplasty hardware. The enlarged prostate gland causes mass effect on the undersurface of the bladder. Seminal vesicles are unremarkable. No visualized adenopathy. Small diverticulum along the right posterolateral aspect of the bladder. Fat-containing left inguinal hernia. Scattered atherosclerotic calcification. No acute bowel pathology is demonstrated. Coarsely calcified mesenteric nodules, the largest measuring 1.6 cm, are unchanged compared to exam 01/25/2015 and 09/04/2013. Postsurgical changes from L4-S1 posterior fusion and associated laminectomy redemonstrated. Hardware from right hip arthroplasty is noted. No new suspicious lytic or blastic lesion. Please refer to same-day bone scan for further osseous evaluation. IMPRESSION: 1. Prostatomegaly. 2. No new pelvic mass lesion arising from the prostate. 3. Evaluation of the pelvis is somewhat limited secondary to streak artifact from right hip arthroplasty hardware. 4. Additional nonacute findings as described. Assessment/Plan Assessment/Plan ARF PROBABLE DEHYDRATION RELATED. RECOMMEND RENAL ULTRASOUND TO COMPLETE UPPER TRACT EVALUATION FOR POSSIBLE SOURCE OF ARF. Copies To: MIREILLE TRAVIS MD Consult Acknowledgment - Thank you for your consult request.
--- NOTE | 2017-02-11 08:53 | NUR ---
PT TAKEN OFF 2L O2, SATS DOWN TO 90%. PT PLACED BACK ON 1L NC, SATS UP TO 93-95%. BLADDER SCANNED X 3, RESULTS WERE 54ML, 0ML, 0ML. CONTINUES TO AWAIT [facility] BED. AWAITING U/S. Informed waiting has been performed.
--- NOTE | 2017-02-11 11:30 | NUR ---
REMAINS IN ED, CONTINUES TO AWAIT [facility] BED. PROVIDED LUNCH. OFFERS NO COMPLAINTS. Informed waiting has been performed.
--- NOTE | 2017-02-11 11:49 | NUR ---
PT TO U/S VIA STRETCHER.
--- NOTE | 2017-02-11 12:16 | NUR ---
BACK FROM U/S. PT PLACED ON HOSPITAL BED. FAMILY AT BEDSIDE.
--- NOTE | 2017-02-11 12:44 | ULTRASOUND REPORT ---
EXAMINATION: US RETROPERITONEAL COMPLETE (RENAL) CLINICAL INFORMATION: UTI, rule out obstruction. History of benign prostatic hypertrophy and prostatic cancer diagnosed in 05/28/2016. COMPARISON: 04/07/2015. TECHNIQUE: Real-time imaging of the kidneys and bladder. Selected static images are provided for interpretation. FINDINGS: RIGHT KIDNEY: 10.2 x 6.9 x 6.3 cm (SAG x AP x TRV). The kidney is normal in size, contour, and echogenicity. Renal cortical thickness is normal. No calculi or focal parenchymal lesions. No hydronephrosis. LEFT KIDNEY: 10.0 x 6.3 x 5.4 cm (SAG x AP x TRV). There is a 2 cm maximal dimension exophytic cyst off the lower pole of the left kidney laterally, previously 1.6 cm maximal dimension. The technologist has made note of a 6 to 7 mm hyperechoic focus in the collecting system lower pole left kidney without posterior acoustic raising the question of a small calculus. The kidney is otherwise normal in size, contour, and echogenicity. Renal cortical thickness is normal. No hydronephrosis. BLADDER: Well-distended and normal. Bilateral ureteral jets are demonstrated. Prevoid bladder volume is 121 mL patient had the sensation of fullness at this time and was unable to hold any more fluid. No post void residual is identified. OTHER: There is a 3.6 cm maximal dimension cyst inferiorly in the right lobe of the liver. This measured 3.2 cm maximal dimension on the prior exam. Imaging of the prostate is not included. IMPRESSION: 1. Small hepatic and left renal cyst. 2. Questionable small calculus lower pole left kidney. 3. There is no evidence of obstruction.
--- NOTE | 2017-02-11 12:45 | NUR ---
PT C/O CONTINUED PAIN. DUE FOR PO OXYCODONE AT 1400. SPOKE WITH DR LUQUE #[id number] (COVERING FOR DR GLASGOW). ORDERED PRN DILAUDID. MEDICATED PER EMAR. FAMILY REQUESTING TO SPEAK TO DR GLASGOW, AWARE HE WILL BE DOWN TO SPEAK WITH FAMILY. Informed waiting has been performed.
--- NOTE | 2017-02-11 14:15 | NUR ---
DR LUQUE AT BEDSIDE TO DISCUSS DISPO/RESULTS WITH PT AND FAMILY.
--- NOTE | 2017-02-11 14:40 | NUR ---
MEDICATED PER EMAR WITH TYLENOL AND OXYCODONE. CONTINUES TO AWAIT [facility] BED. Informed waiting has been performed.
--- NOTE | 2017-02-11 15:04 | NUR ---
PT ADMITTED TO ROOM 210-1
--- NOTE | 2017-02-11 15:15 | NUR ---
REPORT HANDED OFF TO SHADY ZENDEJAS.
--- NOTE | 2017-02-11 15:58 | NUR ---
MEAL TRAY DELIVERED
--- NOTE | 2017-02-11 16:26 | NUR ---
REPORT TO TIMO, TRANSPORT BOOKED.,
--- NOTE | 2017-02-11 16:54 | NUR ---
DISTRIBUTION ARRIVED BUT NEEDS 2ND PERSON TO TRANSPORT.
[2017-02-11 18:00] VITALS: BP 110/62
--- NOTE | 2017-02-11 20:15 | NUR ---
LATE ENTRY: PATIENT ARRIVED TO FLOOR AT 1715 FROM ER, DX CHRISTINE VS 98.3 77 18 110/62 96% 1L O2-ROOM AIR BASELINE A&O, HARD OF HEARING; LCTA; INDEPENDENT WITH WALKER AT HOME, HELPS WITH ADLs; SKIN INTACT, REDNESS TO BOTTOM, BLANCHABLE; MAY USE URINAL, MAY BE INCONTINENT; FALL PRECAUTIONS IN PLACE; C/O BACK PAIN, AND THAT HIS FEET WERE "BURNING"; #22 IV TO RH WITH NS @ 125 ML/HR RUNNING. ORIENTED TO ROOM AND CALL PARKER, NEEDS WITHIN REACH, SAFETY MAINTAINED.
[2017-02-11 21:59] VITALS: BP 140/82
--- NOTE | 2017-02-12 06:29 | PN- Housestaff ---
MYAH ESTEVEZ,[facility] 02/12/17 0629: Subjective Follow-up For: back pain Subjective: Mr. Perez was seen and examined this morning. Is resting comfortably in bed. Patient states that he feels lousy although improved since yesterday. He does state that his back pain has drastically improved. Denies any fever, chills, nausea, vomiting. Tolerating by mouth intake well. Has been able to void. Review of Systems Constitutional: Reports: see HPI. Objective Last 24 Hrs of Vital Signs/I&O Vital Signs Date Time Temp Pulse Resp B/P B/P Pulse O2 O2 Flow FiO2 Mean Ox Delivery Rate 02/12 0735 97.9 72 18 136/72 93 Nasal Cannula 02/12 0000 96 Nasal 1.0L Cannula 02/11 2317 98.3 02/11 2159 98.1 60 18 140/82 96 Nasal 2.0L Cannula 02/11 1856 Nasal 1.0L Cannula 02/11 1800 77 18 110/62 96 Nasal 1.0L Cannula 02/11 1725 96 Nasal 1.0L Cannula 02/11 1625 98.8 81 22 122/56 94 Nasal 1.0L Cannula 02/11 1440 99.6 02/11 1440 102.0 85 20 142/71 94 Nasal 1.0L Cannula 02/11 1342 99.6 96 20 181/89 94 Nasal 2.0L Cannula 02/11 1140 99.3 61 20 144/78 96 Nasal 0.5L Cannula 02/11 1000 99.0 58 20 109/69 06 1000 99.0 58 20 109/69 96 Nasal 2.0L Cannula Intake & Output 02/12 1600 02/12 0800 02/12 0000 Intake Total 1240 1230 Output Total 400 250 Balance 840 980 Intake, IV 1000 750 Intake, Oral 240 480 Number 0 Bowel Movements Output, Urine 400 250 Patient 78.925 kg Weight Weight Reported by Patient Measurement Method Physical Exam General Appearance: Alert, Oriented X3, Cooperative, No Acute Distress Skin: No Rashes HEENT: Mucous Membr. moist/pink Cardiovascular: Regular Rate, Normal S1, Normal S2 Lungs: crackles left sided Abdomen: Normal Bowel Sounds, Soft, No Tenderness Neurological: Normal Speech Extremities: No Edema Current Medications: Current Medications Sig/Emily Start time Last Medication Dose Route Stop Time Status Admin Acetaminophen 0 .STK-MED ONE 02/11 1405 DC PO Acetaminophen 650 MG Q6P PRN 02/11 0400 AC 02/11 PO 1440 Aspirin Buffered 81 MG DAILY 02/11 1000 AC 02/11 PO 1000 Atorvastatin Calcium 40 MG 1700 02/11 1700 AC 02/11 PO 2007 Ceftazidime 0 .STK-MED ONE 02/11 1523 DC .ROUTE Ceftazidime 1,000 MG Q12H 02/11 1500 AC 02/12 IV 0243 Hydromorphone HCl 0 .STK-MED ONE 02/11 1247 DC .ROUTE Hydromorphone HCl 0.6 MG Q4P PRN 02/11 1245 AC 02/11 IV 1245 Oxycodone HCl 5 MG Q4 PRN 02/11 1512 AC 02/12 PO 0244 Oxycodone HCl 0 .STK-MED ONE 02/11 1405 DC PO Oxycodone HCl 5 MG Q4P PRN 02/11 1245 DC 02/11 PO 1440 Oxycodone HCl 0 .STK-MED ONE 02/11 1013 DC PO Oxycodone HCl 5 MG Q6P PRN 02/11 0400 DC 02/11 PO 1000 Polyethylene Glycol 17 GM DAILY 02/11 1000 AC 02/11 PO 1000 Senna 187 MG AT BEDTIME 02/11 2200 AC 02/11 PO 2006 Sodium Chloride 1,000 ML Q8H 02/11 0515 AC 02/12 IV 0617 Tamsulosin HCl 0.4 MG DAILY 02/11 1000 AC 02/11 PO 1000 Last 24 Hrs of Lab/Bashir Results Last 24 Hrs of Labs/Mics: Laboratory Tests 02/12/17 0615: Anion Gap 7, Estimated GFR 41 L, BUN/Creatinine Ratio 14.4 Assessment/Plan Assessment: 89 years old male with past medical history significant for prostate cancer status post radiation and ? hormonal therapy, dyslipidemia, arthritis in 1999, bilateral knee replacement, history of right hip replacement surgery 2000, L5-S1 fusion and laminectomy, rotator cuff injury of right shoulder, neuropathy, macular degeneration, history of vertigo in the past, left eye cataract surgery, recent admission at the [facility] for urinary tract infection came to emergency department for inability to urinate, pain with passing urine, and burning while passing urine, subjective fever, chills and back pain. Patient was admitted on general medicine floor for the management of following problems Sepsis secondary to urinary tract infection Patient met the criteria for sepsis given leukocytosis of 12.1 and high-grade fever of 101.4, and does not have any tachypnea or tachycardia. Most likely source of sepsis in this patient is secondary to urinary tract infection with history of multiple UTIs in the past and history of benign prostatic hyperplasia in the setting of prostate CA further complicates this. Renal ultrasound was negative for any obstruction. Continue patient on general medicine floor. Continue IV ceftazidime. Every 12. Urine cultures positive for gram-negative rods. Sensitivities to follow and tailor antibiotics accordingly. Formal urology consult obtained and patient will be likely followed up with urology service as an outpatient. I spoke with the and daughter of the family who recommended that this is what the radiation oncologist mentioned. Acute kidney injury in the setting of BPH Most likely cause of acute kidney injury is obstruction versus decreased by mouth intake. Patient's creatinine was more than 0.3 mg/dL from baseline (1.0), and qualifies for acute kidney injury. Patient denied Diehl's catheter. Bladder scan every shift. If PVR greater than 3 50 mL consider straight cath as needed. Repeat BEP in a.m. Hypoxemic Respiratory Failure Patient does not require oxygen at baseline Well's Criteria 2.5 (H/O cancer and immbolization) Patient continued to be on supplemental oxygen until early this evening. He was saturating 93% on room air. A chest x-ray was done to rule out any deficits. Incentive spirometer. If Still hypoxic in a.m. May consider PE workup. History of prostate CA Patient has past medical history significant for prostate CA. Consultation placed with the office of Dr. Ratliff Medical records pending. Thrombocytopenia Will check platelets 02/13/2017. Last platelets 85. Code Full Code Problem List: 1. Urinary retention 2. Hyperlipidemia 3. Hypertension 4. Chronic back pain 5. BPH 6. Back pain 7. ARF (acute renal failure) Pain Ratin Pain Location: Back/ Chronic Pain Goal: Remain pain free Pain Plan: Dilaidid and Tyelenol Tomorrow's Labs & Rationales: BEP: Moniror Electrolytes and renal function Consulting Request: Consulting Specialty: Urology ZOË HATCH MD 02/12/17 1138: Attending MD Review Statement Attending Statement Attending MD Statement: examined this patient, discuss w/resident/PA/WAREHOUSE LOADER, agreed w/resident/PA/WAREHOUSE LOADER, reviewed EMR data (avail) Attending Assessment/Plan: 89M PMH prostate adenocarcinoma s/p radiation therapy (2016), recurrent UTI admitted with intractable lower back pain, unsteady gait, inability to ambulate, and sepsis secondary to UTI. Has a history of Pseudomonal UTI in the past, started on Ceftazidime on admission. Also with urinary retention and CHRISTINE initially, though these have both improved and patient is now urinating well. Today he reports back pain while sitting up, improves when lying down. He has no other complaints. 1. Intractable lower back pain 2. Sepsis secondary to UTI 3. CHRISTINE 4. Acute urinary retention 5. Unable to ambulate Plan - Continue on general medicine - Continue Ceftazidime - Follow cultures - Follow urology recommendations - Obtain post-void residual - PT evaluation - Tylenol for pain, avoid NSAIDs - DVT PPx - Anticipated discharge tomorrow pending ambulation status. Please send CMR to pharmacy for review. Can discharge on Cipro to complete 7 day course for UTI. pharmacy for review. Can discharge on Cipro to complete 7 day course for UTI.
[2017-02-12 07:35] VITALS: BP 136/72
[2017-02-12 14:32] VITALS: BP 100/53
--- NOTE | 2017-02-12 15:14 | NUR ---
NURSING NOTE: PATIENT TRANSPORTED TO X-RAY @ 1500. A&O X 3 WITH N/C OF PAIN OR DISCOMFORT.
--- NOTE | 2017-02-12 15:45 | RADIOLOGY REPORT ---
EXAMINATION: XR CHEST CLINICAL INFORMATION: Shortness of breath. Increased oxygen requirement. COMPARISON: 02/10/2017 TECHNIQUE: 2 views of the chest were obtained. FINDINGS: The lungs remain symmetrically expanded. No acute pulmonary consolidation, interstitial edema or pleural effusion. Cardiomediastinal silhouette has stable size and configuration. Thoracic aorta is calcified. Bone density appears diffusely decreased. No acute osseous abnormality. IMPRESSION: 1. No evidence of pneumonia. 2. Mild cardiomegaly without pulmonary edema.
[2017-02-12 22:29] VITALS: BP 130/72
--- NOTE | 2017-02-13 04:55 | NUR ---
PT C/O FEELING NAUSEA. PAGED IMGE HULUR. ONE TIME ORDER OF ZOFRAN ORDERED
--- NOTE | 2017-02-13 06:10 | PN- Housestaff ---
See Addendum MYAH ESTEVEZ,[facility] 02/13/17 0609: Subjective Follow-up For: UTI Back Pain Subjective: Mr Gr was seen and examined this morning. He is currently comfortable. Was able to get some rest, despite feeling nauseaus. He has been tolorating PO intake well. He denies any fever, chills, nausea or vomiting. Mr Gr states that his pain in well controlled. He states that he had a visis from Dr Ratliff yestersday. Review of Systems Constitutional: Reports: see HPI. Objective Last 24 Hrs of Vital Signs/I&O Vital Signs Date Time Temp Pulse Resp B/P B/P Pulse O2 O2 Flow FiO2 Mean Ox Delivery Rate 02/12 2229 98.5 64 20 130/72 95 Room Air 02/12 1432 98.9 77 20 100/53 93 Room Air 02/12 0917 72 136/72 02/12 0735 97.9 72 18 136/72 93 Nasal Cannula Intake & Output 02/13 0800 02/13 0000 02/12 1600 Intake Total 680 970 Output Total 200 650 650 Balance -200 30 320 Intake, IV 500 250 Intake, Oral 180 720 Number 1 0 Bowel Movements Output, Urine 200 650 650 Physical Exam General Appearance: Alert, Oriented X3, Cooperative HEENT: Mucous Membr. moist/pink Neck: Supple Cardiovascular: Regular Rate, Normal S1, Normal S2 Lungs: Clear to Auscultation Abdomen: Normal Bowel Sounds, Soft, No Tenderness Neurological: Normal Speech Current Medications: Current Medications Sig/Emily Start time Last Medication Dose Route Stop Time Status Admin Acetaminophen 650 MG Q6P PRN 02/11 0400 AC 02/11 PO 1440 Aspirin Buffered 81 MG DAILY 02/11 1000 AC 02/13 PO 0903 Atorvastatin Calcium 40 MG 1700 02/11 1700 AC 02/12 PO 1734 Ceftazidime 1,000 MG Q12H 02/11 1500 AC 02/13 IV 0319 Hydromorphone HCl 0.6 MG Q4P PRN 02/11 1245 AC 02/11 IV 1245 Ondansetron HCl 4 MG ONCE ONE 02/13 0500 DC 02/13 IV 02/13 0501 0453 Oxycodone HCl 5 MG .STK-MED ONE 02/12 1958 DC PO 02/12 1959 Oxycodone HCl 5 MG Q4 PRN 02/11 1512 AC 02/13 PO 0321 Patient Medication 1 ED .STK-MED ONE 02/12 1212 UT Teaching ED 02/12 1213 Polyethylene Glycol 17 GM DAILY 02/11 1000 AC 02/13 PO 0903 Senna 187 MG AT BEDTIME 02/11 2200 AC 02/12 PO 2123 Sodium Chloride 1,000 ML Q8H 02/11 0515 DC 02/13 IV 0321 Tamsulosin HCl 0.4 MG DAILY 02/11 1000 AC 02/13 PO 0903 Last 24 Hrs of Lab/Bashir Results Last 24 Hrs of Labs/Mics: Laboratory Tests 02/13/17 0657: Anion Gap 8, Estimated GFR 52 L, BUN/Creatinine Ratio 17.7, CBC w Diff NO MAN DIFF REQ, RBC 3.07 L, MCV 90.4, MCH 30.9, RDW 13.9, MPV 11.2 H, Gran % 62.7, Lymphocytes % 15.1 L, Monocytes % 16.8 H, Eosinophils % 5.2 H, Basophils % 0.2, Absolute Granulocytes 2.9, Absolute Lymphocytes 0.7 L, Absolute Monocytes 0.8 H, Absolute Eosinophils 0.2, Absolute Basophils 0, PUBS MCHC 34.2 Assessment/Plan Assessment: 89 years old male with past medical history significant for prostate cancer status post radiation and ? hormonal therapy, dyslipidemia, arthritis in 1999, bilateral knee replacement, history of right hip replacement surgery 2000, L5-S1 fusion and laminectomy, rotator cuff injury of right shoulder, neuropathy, macular degeneration, history of vertigo in the past, left eye cataract surgery, recent admission at the [facility] for urinary tract infection came to emergency department for inability to urinate, pain with passing urine, and burning while passing urine, subjective fever, chills and back pain. Patient was admitted on general medicine floor for the management of following problems UTI caused by Gram negative lyle. Renal ultrasound was negative for any obstruction. Continue patient on general medicine floor. Urine cultures positive for gram-negative rods -- > +Pseudemonas Aureginosa, sensitive to Ciprofloxacin. Formal urology consult obtained and patient will be likely followed up with urology service as an outpatient. I spoke with the and daughter of the family who recommended that this is what the radiation oncologist mentioned. Acute kidney injury in the setting of BPH Most likely cause of acute kidney injury is obstruction versus decreased by mouth intake. Patient's creatinine was more than 0.3 mg/dL from baseline (1.0), and qualifies for acute kidney injury. Patient denied Diehl's catheter. Bladder scan every shift. If PVR greater than 350 mL consider straight cath as needed. Repeat BEP in a.m. Hypoxia as a result of atelectasis Patient does not require oxygen at baseline Well's Criteria 2.5 (H/O cancer and immbolization) Patient continued to be on supplemental oxygen until early this evening. He was saturating 93% on room air. A chest x-ray was done to rule out any pathology. Incentive spirometer at bedside, encouraged use. If Still hypoxic in a.m. May consider additional work up. History of prostate CA Patient has past medical history significant for prostate CA. Consultation placed with the office of Dr. Ratliff Medical records pending from [place]. Thrombocytopenia Will check platelets 02/13/2017. Last platelets 82 Code Full Code Problem List: 1. Chronic back pain 2. BPH 3. ARF (acute renal failure) 4. Back pain 5. Urinary tract infection 6. Hyperlipidemia Pain Ratin Pain Location: Back Pain, Chronic Back Pain Goal: Remain pain free Pain Plan: Oxycodone and dilaudid Tomorrow's Labs & Rationales: No Labs needed Consulting Request: Consulting Specialty: Urology HOLDEN ESTEVEZDENIZ 02/13/17 1353: Attending MD Review Statement Attending Statement Attending MD Statement: examined this patient, discuss w/resident/PA/MICROSOFT ARCHITECT, agreed w/resident/PA/MICROSOFT ARCHITECT, reviewed EMR data (avail) Attending Assessment/Plan: 89M PMH prostate adenocarcinoma s/p radiation therapy (2015), recurrent UTI admitted with intractable lower back pain, unsteady gait, inability to ambulate, and sepsis secondary to UTI. Has a history of Pseudomonal UTI in the past, started on Ceftazidime on admission. Also with urinary retention and CHRISTINE initially, though these have both improved and patient is now urinating well. Today he reports back pain while sitting up, improves when lying down. He has no other complaints. Urine culture growing Pseudomonas sensitive to Cipro. 1. Intractable lower back pain 2. Sepsis secondary to UTI 3. CHRISTINE 4. Acute urinary retention 5. Unable to ambulate Plan - Stable for discharge home - Ciprofloxacin to complete 7 day course - Follow urology recommendations, follow up as outpatient - Tylenol for pain, avoid NSAIDs - Home physical therapy and home health services - Stable for discharge home - Ciprofloxacin to complete 7 day course - Follow urology recommendations, follow up as outpatient - Tylenol for pain, avoid NSAIDs - Home physical therapy and home health services
[2017-02-13 06:53] VITALS: BP 138/78
[2017-02-13 09:03] VITALS: BP 138/58
[2017-02-13 09:11] LABS: ABSOLUTE BASOPHIL COUNT 0 /CUMM (0.0-0.2); ABSOLUTE EOSINOPHIL COUNT 0.2 /CUMM (0.0-0.7); ABSOLUTE GRANULOCYTE CT 2.9 /CUMM (1.4-6.5); ABSOLUTE LYMPH COUNT 0.7 /CUMM (1.2-3.4); ABSOLUTE MONOCYTE COUNT 0.8 /CUMM (0.10-0.60); BASOPHIL % 0.2 % (0.0-2.0); EOSINOPHIL % 5.2 % (0-5); GRANULOCYTE % 62.7 % (42.2-75.2); MEAN CORPUSCULAR HGB 30.9 PG (27.0-31.0); MEAN CORPUSCULAR HGB CONC 34.2 G/DL (33.0-37.0); MEAN CORPUSCULAR VOLUME 90.4 FL (80.0-94.0); MEAN PLATELET VOLUME 11.2 FL (7.4-10.4); RBC DISTRIBUTION WIDTH 13.9 % (11.5-14.5); RED BLOOD CELL CT 3.07 /CUMM (4.70-6.10)
[2017-02-13 10:12] LABS: HEMATOCRIT 27.7 % (42-52); PLATELET COUNT 82 /CUMM (130-400); WHITE BLOOD CELL COUNT 4.6 /CUMM (4.8-10.8)
--- NOTE | 2017-02-13 11:14 | Patient Discharge Instructions ---
Discharge Instructions General Discharge Information You were seen/treated for: UTI You had these procedures: NA Watch for these problems: If you feel weak, experience chest pain, shortness breath, or increased weakness please come back to the emergency department. Should you experience any urinary symptoms, burning, frequency or fever, chills, nausea or vomiting, come back to the ED. Special Instructions: Please follow-up with your primary care physician within 7 days of discharge. Please inform your primary care physician of this admission to the hospital. Please inform the primary for this care physician of the treatment administered to you. Please follow-up with a sleep lab technologist within 7 days. We have provided you referral. Please follow-up with lockstitch machine operator in 7 days we have provide your referral. Diet Continue normal diet: Yes Activity Full Activity/No Limits: Yes Acute Coronary Syndrome Inclusion Criteria At DC or during hospital stay patient has or had the following: ACS DIAGNOSIS No Discharge Core Measures Meds if any: Prescribed or Continued at Discharge Meds if any: NOT Prescribed or Continued at Discharge Congestive Heart Failure Inclusion Criteria At DC or during hospital stay patient has or had the following: CHF DIAGNOSIS No Discharge Core Measures Meds if any: Prescribed or Continued at Discharge Meds if any: NOT Prescribed or Continued at Discharge Cerebrovascular accident Inclusion Criteria At DC or during hospital stay patient has or had the following: CVA/TIA Diagnosis No Discharge Core Measures Meds if any: Prescribed or Continued at Discharge Meds if any: NOT Prescribed or Continued at Discharge Venous thromboembolism Inclusion Criteria VTE Diagnosis No VTE Type NONE VTE Confirmed by (Test) NONE Discharge Core Measures - Per Current guidelines, there needs to be overlap - treatment for the first 5 days of Warfarin therapy. - If discharged on Warfarin prior to 5 days of - overlap therapy, the patient will need to be - assessed for post discharge needs including - *Post discharge parental anticoagulation - *Warfarin and/or parental anticoagulation education - *Follow up date to check INR post discharge At least 5 days overlap therapy as Inpatient No Meds if any: Prescribed or Continued at Discharge Note: Overlap Therapy is Warfarin and Anticoagulant Meds if any: NOT Prescribed or Continued at Discharge
[2017-02-13] MEDS ORDERED: CIPROFLOXACIN500 M2 PO ×2 (11:42→13:43)
--- NOTE | 2017-02-21 15:46 | Discharge Summary ---
Visit Information Visit Dates Admission Date: 02/11/17 Discharge Date: 02/13/17 Hospital Course Course Attending Physician: ZOË HATCH MD Primary Care Physician: BRUCE HELTON MD Consulting Request: Consulting Specialty: Urology Hospital Course: Mr. Gr is an 89 year old male with past medical history significant for prostate cancer status post radiation and ? hormonal therapy, dyslipidemia, arthritis in 1999, bilateral knee replacement, history of right hip replacement surgery in 2000, L5-S1 fusion and laminectomy, rotator cuff injury of right shoulder, neuropathy, macular degeneration, history of vertigo in the past, left eye cataract surgery, a recent admission at the [facility] for urinary tract infection presented to the emergency department at [facility] due a decreased ability to void, dysuria, subjective fevers, chills and back pain He was admitted to the General Medical service and below is a summary of the care he receieved under us. Urinary tract infection due to Pseudemonas Patient met the criteria for sepsis given leukocytosis of 12.1 and high-grade fever of 101.4. Most likely source of sepsis in this patient is secondary to urinary tract infection with history of multiple UTIs in the past. The patient was initially treated with IV Ceftazidime Q12 Hours. Urine cultures positive for gram-negative rods. The patient was converted over to Oral antibiotics and was covered for a total of ten days. Formal urology consult obtained and patient will be likely followed up with urology service as an outpatient. Acute kidney injury Likely due to decreased by mouth intake. Patient's creatinine was more than 0.3 mg/dL from baseline (1.0), and qualifies for acute kidney injury. An Ultrasound ruled out an obstruction. Patient was bladder scanned every shift. PVR were minimal and the patient did not require a straight cath protocol to be initiated. Hypoxia At the time of admission needed supplemental oxygen to maintain adequate oxygenation. Patient does not require oxygen at baseline. Patient continued to be on supplemental oxygen inot day one of admission. A chest x-ray was done to rule out any deficits.Prior to dischargehHe was saturating 93% on room air. A chest x-ray was done to rule out any deficits. History of prostate CA Patient has past medical history significant for prostate CA. Consultation placed with the office of Dr. Ratliff. We requested the pateints records from his previous admission at [place]. Thrombocytopenia At the time of admission, the patients platelets were, 98. These were subsequenly rechecked and were 82. Code Full Code Allergies: Coded Allergies: NO KNOWN ALLERGIES (08/07/11) Pertinent Lab Results: SERVICE DATE: 02/12/17- EXAM TYPE: RAD - XRY-CHEST XRAY, PA AND LATERAL EXAMINATION: XR CHEST CLINICAL INFORMATION: Shortness of breath. Increased oxygen requirement. COMPARISON: 02/10/2017 TECHNIQUE: 2 views of the chest were obtained. FINDINGS: The lungs remain symmetrically expanded. No acute pulmonary consolidation, interstitial edema or pleural effusion. Cardiomediastinal silhouette has stable size and configuration. Thoracic aorta is calcified. Bone density appears diffusely decreased. No acute osseous abnormality. IMPRESSION: 1. No evidence of pneumonia. 2. Mild cardiomegaly without pulmonary edema. DICTATED BY: HUE LAO MD SERVICE DATE: 02/11/17-0506 EXAM TYPE: US - US-RENAL/KIDNEY EXAMINATION: US RETROPERITONEAL COMPLETE (RENAL) CLINICAL INFORMATION: UTI, rule out obstruction. History of benign prostatic hypertrophy and prostatic cancer diagnosed in 05/28/2016. COMPARISON: 04/07/2015. TECHNIQUE: Real-time imaging of the kidneys and bladder. Selected static images are provided for interpretation. FINDINGS: RIGHT KIDNEY: 10.2 x 6.9 x 6.3 cm (SAG x AP x TRV). The kidney is normal in size, contour, and echogenicity. Renal cortical thickness is normal. No calculi or focal parenchymal lesions. No hydronephrosis. LEFT KIDNEY: 10.0 x 6.3 x 5.4 cm (SAG x AP x TRV). There is a 2 cm maximal dimension exophytic cyst off the lower pole of the left kidney laterally, previously 1.6 cm maximal dimension. The technologist has made note of a 6 to 7 mm hyperechoic focus in the collecting system lower pole left kidney without posterior acoustic raising the question of a small calculus. The kidney is otherwise normal in size, contour, and echogenicity. Renal cortical thickness is normal. No hydronephrosis. BLADDER: Well-distended and normal. Bilateral ureteral jets are demonstrated. Prevoid bladder volume is 121 mL patient had the sensation of fullness at this time and was unable to hold any more fluid. No post void residual is identified. OTHER: There is a 3.6 cm maximal dimension cyst inferiorly in the right lobe of the liver. This measured 3.2 cm maximal dimension on the prior exam. Imaging of the prostate is not included. IMPRESSION: 1. Small hepatic and left renal cyst. 2. Questionable small calculus lower pole left kidney. 3. There is no evidence of obstruction. DICTATED BY: ISAIAS ZAFAR MD SERVICE DATE: 02/10/17 EXAM TYPE: RAD - XRY-LUMBOSACRAL SPINE AP & LAT EXAMINATION: XR LUMBOSACRAL SPINE CLINICAL INFORMATION: Prostate cancer, worse back pain. COMPARISON: Pelvic CT 02/14/2016. Bone scan from 02/14/2016. Abdomen/pelvis CT 01/25/2015. TECHNIQUE: AP and lateral views of the lumbosacral spine were obtained. FINDINGS: Posterior fusion hardware is in place from L4 through S1. Left L5 particular screw. No right-sided screw. This is unchanged. There is a lucent appearance of the L5 vertebral body which may be similar to the prior reception manager image from the 01/25/2015 CT. This vertebral body is not well evaluated. Chronic vertebral body height loss of L3. The remaining vertebral body heights are maintained. Multilevel degenerative changes throughout the spine. Prominent disc space narrowing throughout with vacuum disc phenomenon. Large endplate osteophytes. The sacroiliac joints are intact. Partial visualization of right hip arthroplasty hardware. IMPRESSION: Moderate degenerative changes throughout the lumbar spine. Lucent appearance of the L5 vertebral body is likely similar to the previous Shipping Hand imaging from prior CTs. This limits evaluation of L5. Otherwise no evidence for fracture. No new sclerotic lesion. DICTATED BY: LUIS MACKAY MD SERVICE DATE: 02/10/17 EXAM TYPE: RAD - XRY-CHEST XRAY, PA AND LATERAL EXAMINATION: XR CHEST CLINICAL INFORMATION: Hypoxia and fever COMPARISON: 04/23/2013 TECHNIQUE: 2 views of the chest were obtained. FINDINGS: The lungs are well expanded. There is no focal consolidation, edema, or effusion. No pneumothorax. The cardiomediastinal silhouette is unchanged, with a calcified aorta. No acute osseous abnormality. IMPRESSION: No acute pulmonary findings. DICTATED BY: LUIS MACKAY MD Disposition Summary Disposition Principal Diagnosis: Urinary tract infection due to Pseudemonas Additional Diagnosis: Acute kidney injury Hypoxia History of prostate CA Thrombocytopenia Discharge Disposition: home or self care Discharge Instructions General Discharge Information Code Status: Full Code Patient's Diet: Heart Healthy Patient's Activity: As Tolerated Follow-Up Instructions/Appts: Please follow-up with your primary care physician within 7 days of discharge. Please inform your primary care physician of this admission to the hospital. Please inform the primary for this care physician of the treatment administered to you. Please follow-up with a pipe straightener within 7 days. We have provided you referral. Please follow-up with clinical lab specialist in 7 days we have provide your referral. Medications at Discharge Discharge Medications: Stop taking the following medications: Ciprofloxacin HCl (Cipro) 500 MG TABLET ORAL TWICE DAILY Qty = 20 Continue taking these medications: Oxycodone HCl (Oxycodone HCl) 5 MG TABLET 1 Tablet ORAL 4XDAILY as needed for PAIN Qty = 110 Comments: PER PT Celecoxib (Celecoxib) 200 MG CAPSULE 1 Capsule ORAL DAILY Qty = 30 Comments: PER PT Rosuvastatin Calcium (Crestor) 10 MG TABLET 1 Tablet ORAL 2 times per week Qty = 30 Comments: PER PT WED AND SUN Rose-3 Fatty Acids (Rose-3) 1,000 MG CAPSULE 2 Capsule ORAL DAILY Comments: PER PT Lutein (Lutein) (Unknown Strength) CAPSULE Unknown Dose ORAL DAILY Comments: PER PT Calcium Carbonate (Calcium) 500 MG TABLET 1,500 Milligram ORAL DAILY Comments: PER PT Cholecalciferol (Vitamin D3) 1,000 UNIT TABLET 1 Tablet ORAL DAILY Comments: PER PT Cyanocobalamin (Vitamin B-12) 1,000 MCG TABLET 1 Tablet ORAL DAILY Comments: PER PT Ubidecarenone (Co Q-10) 100 MG CAPSULE 1 Capsule ORAL DAILY Comments: PER PT Lactobacillus Acidophilus (Probiotic) 1 EACH CAPSULE 1 Capsule ORAL DAILY Comments: PER PT Aspirin (Ecotrin*) 81 MG TABLET.DR 1 Tablet ORAL DAILY Comments: PER PT Pantoprazole Sodium (Protonix) 40 MG TABLET.DR 1 Tablet ORAL DAILY Comments: PER PT Polyethylene Glycol 3350 (Polyethylene Glycol 3350) 255 GM POWDER 17 Gram ORAL Every 3 days Qty = 527 Comments: PER PT Tamsulosin HCl (Tamsulosin HCl) 0.4 MG CAP.ER.24H 1 Capsule ORAL DAILY Qty = 90 Comments: PER PT Duloxetine HCl (Duloxetine HCl) 30 MG CAPSULE.DR 1 Capsule ORAL DAILY Qty = 90 Comments: PER PT Start taking the following new medications: Ciprofloxacin HCl (Ciprofloxacin HCl) 500 MG TABLET 1 Tablet ORAL TWICE DAILY Qty = 8 No Refills Instructions: . Copies To: AMIE ESTEVEZ,YUKI Mccloud; DESIREE ESTEVEZ,YUKI Huang; DANIE ESTEVEZ,BRUCE
== END 2017-02-13 14:48 | disposition home health service (06) | DRG 690 ==
LOC: ERH 22:39 → 2NB 02-11 03:40 → ERHI 02-11 03:40 → 2NB 02-11 03:40 → ENRESERV 02-11 15:00 → ENTRNSPT 02-11 16:24 → 2NB 02-11 17:06 → CMPTRNSPT 02-11 17:28 → ENPENDDIS 02-13 11:56 → 2NB 02-13 14:48
PROVIDERS: Emergency Medicine; Internal Medicine Infectious Disease; Student in an Organized Health Care Education/Training Program; ADMIT Student in an Organized Health Care Education/Training Program
DX: N39.0 Urinary tract infection, site not specified (principal); N17.9 Acute kidney failure, unspecified; D69.6 Thrombocytopenia, unspecified; B96.5 Pseudomonas (aeruginosa) (mallei) (pseudomallei) as the cause of diseases classified elsewhere; R33.9 Retention of urine, unspecified; Z85.46 Personal history of malignant neoplasm of prostate; M54.5 Low back pain; E78.5 Hyperlipidemia, unspecified
CPT/HCPCS: 2NBSP; 36415; 72100; 76775; 81001; 82436; 87040; 87086; 93005; 93010; 96374; 96375; 97110-GO; 97116-GO; 97161-GP; 97530-GO; J0131; J0713; J1644; J2405